=== PATIENT | female | born 1970 ===

== ENCOUNTER 2017-07-15 22:46 | Emergency (ER) | payer OTHER ==
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
[2017-07-16 03:13] VITALS: BP 118/69
== END 2017-07-16 03:09 | disposition home or self-care (01) ==
LOC: ED 22:46
DX: S46.811A Strain of other muscles, fascia and tendons at shoulder and upper arm level, right arm, initial encounter (principal); S46.911A Strain of unspecified muscle, fascia and tendon at shoulder and upper arm level, right arm, initial encounter; G43.009 Migraine without aura, not intractable, without status migrainosus; V49.50XA Passenger injured in collision with unspecified motor vehicles in traffic accident, initial encounter; Y93.89 Activity, other specified; Y99.8 Other external cause status; Y92.488 Other paved roadways as the place of occurrence of the external cause
CPT/HCPCS: 99282